=== PATIENT | male | born 1940 ===

== ENCOUNTER 2021-06-24 15:42 | Inpatient (IN) | payer MEDICARE, OTHER ==
[2021-06-24] MEDS ORDERED: Acetaminophen 325 MG Tab PO PRN (16:39)
[2021-06-24] MEDS ORDERED: diphenhydrAMINE/Zinc Acetate 1% Crm 28.3 GM Tube TOP PRN (16:44)
[2021-06-24] MEDS: Nystatin Susp 100,000 Unit/ML 5 ML UD Cup PO SCH ×2 (17:37→20:29)
[2021-06-24] MEDS: NS + KCl 20mEq/L 1,000 ML IV SCH (17:39)
[2021-06-24] MEDS: Insulin Lispro 100 Unit/ML 3 ML KwikPen SUBCUT SCH (18:34)
[2021-06-24] MEDS ORDERED: FLU Vacc QS2021(65UP)/MF59C/PF 60 MCG/0.5 ML Syringe IM ONE (20:00)
[2021-06-24] MEDS: QUEtiapine 25 MG Tab PO PRN (21:32)
[2021-06-25] MEDS: NS + KCl 20mEq/L 1,000 ML IV SCH (02:00)
[2021-06-25] MEDS: Insulin Lispro 100 Unit/ML 3 ML KwikPen SUBCUT SCH ×3 (06:59→18:28)
[2021-06-25] MEDS ORDERED: Lactulose Soln 10 GM/15 ML 30 ML UD Cup PO PRN (08:19)
[2021-06-25] MEDS: Sodium Chloride 0.45% with KCl 1,000 ML IV SCH ×2 (08:44→23:58)
[2021-06-25] MEDS ORDERED: Levofloxacin/Dextrose 5%-Water 750 MG in Premix Bag 1 BAG IV SCH (10:30)
[2021-06-25] MEDS: Nystatin Susp 100,000 Unit/ML 5 ML UD Cup PO SCH ×4 (10:32→22:42)
[2021-06-25] MEDS: Atenolol 25 MG Tab PO SCH (10:32)
[2021-06-25] MEDS: Levothyroxine 112 MCG Tab PO SCH (10:32)
[2021-06-25] MEDS: Cetirizine 10 MG Tab PO SCH (10:33)
[2021-06-25] MEDS ORDERED: Diclofenac Sodium 1% Gel 100 GM Tube TOP PRN (10:35)
[2021-06-25] MEDS: Acetaminophen 650 MG Supp RECTAL PRN (11:30)
[2021-06-25] MEDS: QUEtiapine 25 MG Tab PO PRN (20:00)
[2021-06-26] MEDS: Acetaminophen 650 MG Supp RECTAL PRN (04:53)
[2021-06-26] MEDS: Insulin Lispro 100 Unit/ML 3 ML KwikPen SUBCUT SCH ×3 (07:01→19:29)
[2021-06-26] MEDS: Levothyroxine 112 MCG Tab PO SCH (07:01)
[2021-06-26] MEDS: Cetirizine 10 MG Tab PO SCH (09:10)
[2021-06-26] MEDS: Nystatin Susp 100,000 Unit/ML 5 ML UD Cup PO SCH ×4 (09:10→20:24)
[2021-06-26] MEDS: Atenolol 25 MG Tab PO SCH ×2 (09:10→12:50)
[2021-06-26] MEDS ORDERED: LORazepam 2 MG/ML SDV IVPUSH PRN (11:08)
[2021-06-26] MEDS: Sodium Chloride 0.45% with KCl 1,000 ML IV SCH (13:28)
[2021-06-27] MEDS: Sodium Chloride 0.45% with KCl 1,000 ML IV SCH (02:22)
[2021-06-27] MEDS: Levothyroxine 112 MCG Tab PO SCH (06:58)
[2021-06-27] MEDS: Insulin Lispro 100 Unit/ML 3 ML KwikPen SUBCUT SCH (06:58)
[2021-06-27] MEDS ORDERED: diphenhydrAMINE/Zinc Acetate 1% Crm 28.3 GM Tube TOP PRN (09:00)
[2021-06-27] MEDS ORDERED: fentaNYL 100 MCG/2 ML SDV IVPUSH PRN (09:13)
[2021-06-27] MEDS: Atenolol 25 MG Tab PO SCH (09:37)
[2021-06-27] MEDS: Nystatin Susp 100,000 Unit/ML 5 ML UD Cup PO SCH (09:37)
[2021-06-27] MEDS: Cetirizine 10 MG Tab PO SCH (09:38)
[2021-06-27] MEDS: LORazepam 2 MG/ML SDV IVPUSH PRN (11:36)
[2021-06-27] MEDS ORDERED: Diclofenac Sodium 1% Gel 100 GM Tube TOP PRN (11:42)
[2021-06-28] MEDS: LORazepam 2 MG/ML SDV IVPUSH PRN ×2 (10:06→13:51)
[2021-06-28] MEDS ORDERED: Scopolamine 1.5 MG Transdermal Patch TRDERM PRN (11:05)
== END 2021-06-28 14:04 | disposition hospice, home (50) | DRG 640 ==
LOC: JD.MS 15:42
PROVIDERS: ADMIT Family Medicine; ATTEND Internal Medicine
DX: E83.52 Hypercalcemia (principal); E43 Unspecified severe protein-calorie malnutrition; K70.30 Alcoholic cirrhosis of liver without ascites; L29.9 Pruritus, unspecified; K72.10 Chronic hepatic failure without coma; Z51.5 Encounter for palliative care; R13.10 Dysphagia, unspecified; R29.810 Facial weakness; I12.9 Hypertensive chronic kidney disease with stage 1 through stage 4 chronic kidney disease, or unspecified chronic kidney disease; N18.32 Chronic kidney disease, stage 3b; E11.22 Type 2 diabetes mellitus with diabetic chronic kidney disease; E78.5 Hyperlipidemia, unspecified; Z20.822 Contact with and (suspected) exposure to COVID-19; N28.1 Cyst of kidney, acquired; R41.82 Altered mental status, unspecified; Z88.0 Allergy status to penicillin; Z68.21 Body mass index [BMI] 21.0-21.9, adult
CPT/HCPCS: 36415; 51702; 70450; 70450-26; 80053; 81001; 82140; 82947; 83036; 83970; 84295; 84443; 85025; 85610; 87040; 93005; 99214; A9270-GY; J1956; J2060; J3010; J3480; U0002